=== PATIENT | female | born 1965 | race Hispanic/Latino ===

== ENCOUNTER 2018-02-16 08:27 | Outpatient (CLI) | payer BC | END 2018-02-16 08:28 | disposition home or self-care (01) | LOC: BICMAMMO 08:27 | PROVIDERS: ATTEND Internal Medicine Medical Oncology | DX: Z08 Encounter for follow-up examination after completed treatment for malignant neoplasm (principal); Z85.3 Personal history of malignant neoplasm of breast | CPT/HCPCS: 77066; G0279 ==

== ENCOUNTER 2019-02-17 08:06 | Outpatient (CLI) | payer BC ==
--- NOTE | 2019-02-17 08:43 | MMO ---
Bilateral MAMMO Bilat Diag [facility]. CLINICAL HISTORY: Patient is 53 years old and is seen for diagnostic exam. The patient has no family history of breast cancer. The patient has a history of Excisional biopsy procedure revealed invasive ductal left breast carcinoma in January, and malignant (generic) in the left breast in 2016. The patient has a history of left Lumpectomy in January, - malignant. VIEWS: The views performed were: bilateral craniocaudal with tomosynthesis; bilateral mediolateral oblique with tomosynthesis; and bilateral mediolateral with tomosynthesis. FILMS COMPARED: The present examination has been compared to prior imaging studies performed at [facility] on 02/20/2016, 03/20/2016, 02/12/2017 and 02/16/2018. This study has been interpreted with the assistance of computer-aided detection. MAMMOGRAM FINDINGS: There are scattered fibroglandular densities. There are no suspicious masses, suspicious calcifications, or new areas of architectural distortion. IMPRESSION: THERE IS NO MAMMOGRAPHIC EVIDENCE OF MALIGNANCY. A ROUTINE FOLLOW-UP MAMMOGRAM IN 1 YEAR IS RECOMMENDED. THE RESULTS OF THIS EXAM WERE SENT TO THE PATIENT. ACR BI-RADS Category 1 - Negative MAMMOGRAPHY NOTE: 1. A negative mammogram report should not delay a biopsy if a dominant of clinically suspicious mass is present. 2. Approximately 10% to 15% of breast cancers are not detected by mammography. 3. Adenosis and dense breasts may obscure an underlying neoplasm. Reported by: Marc ARIAS Electonically Signed: [id number]
== END 2019-02-17 08:07 | disposition home or self-care (01) ==
LOC: BICMAMMO 08:06
PROVIDERS: ATTEND Nurse Practitioner Family
DX: C50.919 Malignant neoplasm of unspecified site of unspecified female breast (principal); R92.8 Other abnormal and inconclusive findings on diagnostic imaging of breast
CPT/HCPCS: 77066; G0279

== ENCOUNTER 2019-04-15 08:38 | Outpatient (CLI) | payer BC ==
--- NOTE | 2019-04-15 09:29 | RAD ---
XR Shoulder Lt 3 View STANDARD History: Pain Comparison: None. Findings: No acute fracture or malalignment. Moderate degenerative disease acromioclavicular joint. V isualized ribs are intact. Impression: No acute osseous abnormality.
--- NOTE | 2019-04-15 09:29 | RAD ---
EXAM: XR Humerus Lt 2 View STANDARD PROVIDED CLINICAL HISTORY: Pain FINDINGS: There is no evidence for fracture or other acute osseous abnormality. Alignment appears anatomic. Maria Antonia nt spaces appear preserved. IMPRESSION: No evidence for an acute osseous abnormality. If there is persistent clinical concern, conservative m anagement and follow-up imaging advised.
--- NOTE | 2019-04-15 10:08 | BD ---
DEXA BONE MINERAL DENSITY STUDY: HISTORY: Osteoporosis screening. COMPARISON: None. FINDINGS: Lumbar Spine: BMD (g/cm2) L1 0.887 T-Score: -0.9 0.0 L2 0.990 T-Score: -0.3 0.7 L3 0.999 T-Score: -0.8 0.3 L4 1.036 T-Score: -0.2 0.9 L1-L4 0.982 T-Score: -0.6 0.4 Femoral Neck: 0.861 T-Score: 0.1 0.9 Total Femur: 0.982 T-Score: 0.3 0.9 WHO classification normal. Impression: Normal bone mineral density. POS: [facility]
== END 2019-04-15 08:39 | disposition home or self-care (01) ==
LOC: BICMAMMO 08:38
PROVIDERS: ATTEND Internal Medicine Medical Oncology
DX: Z13.820 Encounter for screening for osteoporosis (principal); M25.512 Pain in left shoulder; M79.622 Pain in left upper arm; C50.419 Malignant neoplasm of upper-outer quadrant of unspecified female breast; Z78.0 Asymptomatic menopausal state
CPT/HCPCS: 77080

== ENCOUNTER 2019-09-16 07:40 | Outpatient (CLI) | payer BC, OTHER ==
[2019-09-16 11:27] LABS: #Basophils 0.1 thou/uL (0.0-0.2); #Lymphocytes 2.5 thou/uL (1.20-3.40); #Monocytes 0.3 thou/uL (0.11-0.59); %Basophils 1.6 % (0.0-1.0); %Eosinophils 0.8 % (0.0-10.0); %Lymphocytes 41.3 % (21.0-51.0); %Monocytes 5.4 % (0.0-10.0); %Neutrophils 50.9 % (42.0-75.0); Hemoglobin 14.3 g/dL (12.0-16.0); Mean Corpuscular HGB CONC 33.9 g/dL (32.0-36.0); Mean Corpuscular Hemoglobin 30.8 pg (27.0-31.0); Mean Corpuscular Volume 90.8 fL (78.0-98.0); Mean Platelet Volume 6.4 fL (7.4-10.4); Platelet Count 279 thou/uL (130-400); RBC Distribution Width 11.3 % (11.5-14.5); Red Blood Cell (RBC) Count 4.64 mill/uL (4.20-5.40); White Blood Cell (WBC) Count 5.9 thou/uL (4.8-10.8)
[2019-09-16 11:56] LABS: Anion Gap 10 mmol/L (10-20); BUN (Urea Nitrogen) 15 mg/dL (9.8-20.1); Calc. Creatinine Clearance 0 mL/min (70-130); Calcium 9.2 mg/dL (7.8-10.44); Carbon Dioxide 28 mmol/L (22-29); Chloride 105 mmol/L (98-107); Estimated GFR-MDRD 75; Glucose 99 mg/dL (70-105); Potassium 3.9 mmol/L (3.5-5.1); Sodium 139 mmol/L (136-145)
[2019-09-16 18:09] LABS: SARS-CoV-2 MS2 Positive; SARS-CoV-2 N Gene Negative; SARS-CoV-2 S Gene Negative; SARS-CoV-2 orf1ab Negative
== END 2019-09-16 07:41 | disposition home or self-care (01) ==
LOC: LABBT 07:40
PROVIDERS: ATTEND Surgery
DX: Z01.812 Encounter for preprocedural laboratory examination (principal); Z11.59 Encounter for screening for other viral diseases; K42.9 Umbilical hernia without obstruction or gangrene
CPT/HCPCS: 80048; 85025; 87635; U0003

== ENCOUNTER 2019-09-20 05:57 | Day surgery (SDC) | payer BC ==
[2019-09-16 10:45] VITALS: BMI 28.3
[2019-09-20] MEDS ORDERED: Fentanyl 100 MCG/2 ML VIAL ONE (06:37)
[2019-09-20] MEDS ORDERED: Lidocaine 2% w/Epinephrine 1:200K 20 ML VIAL ONE (07:02)
[2019-09-20] MEDS ORDERED: Bupivacaine PF 0.5% 30 ML VIAL ONE (07:02)
--- NOTE | 2019-09-20 08:54 | OP ---
DATE OF PROCEDURE: 09/20/2019 PREOPERATIVE DIAGNOSIS: Umbilical hernia. POSTOPERATIVE DIAGNOSIS: Umbilical hernia. PROCEDURE PERFORMED: Umbilical hernia repair with mesh. ANESTHESIA: General. ESTIMATED BLOOD LOSS: Minimal. COMPLICATIONS: None. SPECIMENS: None. FINDINGS: Umbilical hernia. DESCRIPTION OF PROCEDURE: The patient was taken to the operating room and laid supine on the operating room table. After general anesthetic was obtained, the abdomen was prepped and draped in a sterile fashion. A curved incision was made below the umbilicus. Cautery was used to dissect down to and score the fascia. The abdominal cavity was entered bluntly using a Rosalind. Umbilical stalk was amputated exposing the umbilical defect. The edges of the defect were dissected and free. The preperitoneal space was bluntly dissected through the umbilical defect. A small Ventralex ST mesh was brought into the sterile field, placed into the umbilical defect. Its tails were laid out lateral. The tails were sewn via U-stitch of permanent braided suture to the edges of the fascia. The tails were then cut at the level of the fascia. Thus, the fascia was closed loosely over the mesh. The wound was irrigated. Local anesthetic was applied. The umbilical stalk was tacked back down using 3-0 Vicryl. The skin was closed using running 4-0 Monocryl and Dermabond. The patient was sent to Recovery in stable condition. All instrument counts, needle counts, lap counts were correct. Job ID: [id number]
[2019-09-20] MEDS ORDERED: Ondansetron PF 4 MG/2 ML Vial ONE (09:48)
[2019-09-20] MEDS ORDERED: Dexamethasone 20 MG/5 ML VIAL ONE (09:48)
[2019-09-20] MEDS ORDERED: Lidocaine 1% PF 5 ML VIAL ONE (09:48)
[2019-09-20] MEDS ORDERED: PROPOFOL 200 MG/20 ML VIAL ONE (09:48)
[2019-09-20] MEDS ORDERED: PHENYLEPHRINE-NS 100 MCG/ML 10 ML SYRINGE ONE (09:48)
[2019-09-20] MEDS ORDERED: Ketorolac Tromethamine 30 MG/ML VIAL ONE (09:48)
== END 2019-09-20 09:40 | disposition home or self-care (01) ==
LOC: SDC 05:57
PROVIDERS: ATTEND Surgery
PROC: 0WUF0JZ Supplement Abdominal Wall with Synthetic Substitute, Open Approach (ICD-10-PCS; principal; 2019-09-20)
DX: K42.9 Umbilical hernia without obstruction or gangrene (principal); Z85.3 Personal history of malignant neoplasm of breast; Z79.810 Long term (current) use of selective estrogen receptor modulators (SERMs); Z79.899 Other long term (current) drug therapy
CPT/HCPCS: J0690; J1100; J1885; J2001; J2405; J2704; J3010; S0020

== ENCOUNTER 2020-03-13 09:13 | Outpatient (CLI) | payer BC ==
--- NOTE | 2020-03-13 09:54 | MMO ---
Bilateral MAMMO Bilat Diag [facility]. CLINICAL HISTORY: Patient is 54 years old and is seen for diagnostic exam. The patient has no family history of breast cancer. The patient has a history of Excisional biopsy procedure revealed invasive ductal left breast carcinoma in January, and malignant (generic) in the left breast in 2016. The patient has a history of left Lumpectomy in January, - malignant. VIEWS: The views performed were: bilateral craniocaudal with tomosynthesis; bilateral mediolateral oblique with tomosynthesis; and bilateral mediolateral with tomosynthesis. FILMS COMPARED: The present examination has been compared to prior imaging studies performed at [facility] on 03/20/2016, 02/12/2017, 02/16/2018 and 02/17/2019. This study has been interpreted with the assistance of computer-aided detection. MAMMOGRAM FINDINGS: There are scattered fibroglandular densities. Benign calcifications are noted bilaterally. Nodularity is stable. There are stable left post-operative changes. There are no suspicious masses, suspicious calcifications, or new areas of architectural distortion. IMPRESSION: THERE IS NO MAMMOGRAPHIC EVIDENCE OF MALIGNANCY. A ROUTINE FOLLOW-UP MAMMOGRAM IN 1 YEAR IS RECOMMENDED. THE RESULTS OF THIS EXAM WERE SENT TO THE PATIENT. ACR BI-RADS Category 2 - Benign finding MAMMOGRAPHY NOTE: 1. A negative mammogram report should not delay a biopsy if a dominant of clinically suspicious mass is present. 2. Approximately 10% to 15% of breast cancers are not detected by mammography. 3. Adenosis and dense breasts may obscure an underlying neoplasm. Reported by: PATRICIA ARCE MD Electonically Signed: [id number]
== END 2020-03-13 09:14 | disposition home or self-care (01) ==
LOC: BICMAMMO 09:13
PROVIDERS: ATTEND Internal Medicine Medical Oncology
DX: C50.419 Malignant neoplasm of upper-outer quadrant of unspecified female breast (principal)
CPT/HCPCS: 77066; G0279

== ENCOUNTER 2020-05-11 09:49 | Outpatient (CLI) | payer BC | END 2020-05-11 09:50 | disposition home or self-care (01) | LOC: BICMAMMO 09:49 | PROVIDERS: ATTEND Internal Medicine Medical Oncology | DX: Z13.820 Encounter for screening for osteoporosis (principal); T38.6X5A Adverse effect of antigonadotrophins, antiestrogens, antiandrogens, not elsewhere classified, initial encounter; Z78.0 Asymptomatic menopausal state | CPT/HCPCS: 77080 ==

== ENCOUNTER 2021-03-14 08:27 | Outpatient (CLI) | payer BC | END 2021-03-14 08:28 | disposition home or self-care (01) | LOC: BICMAMMO 08:27 | PROVIDERS: ATTEND Internal Medicine Medical Oncology | DX: Z08 Encounter for follow-up examination after completed treatment for malignant neoplasm (principal); Z85.3 Personal history of malignant neoplasm of breast | CPT/HCPCS: 77066; G0279 ==

== ENCOUNTER 2021-09-26 10:41 | Outpatient (CLI) | payer BC | END 2021-09-26 10:42 | disposition home or self-care (01) | LOC: MRI 10:41 | PROVIDERS: ATTEND Internal Medicine | DX: K59.4 Anal spasm (principal); K62.89 Other specified diseases of anus and rectum; D25.9 Leiomyoma of uterus, unspecified; Z85.3 Personal history of malignant neoplasm of breast | CPT/HCPCS: 72197 ==

== ENCOUNTER 2022-03-27 13:40 | Outpatient (CLI) | payer BC | END 2022-03-27 13:41 | disposition home or self-care (01) | LOC: BICMAMMO 13:40 | PROVIDERS: ATTEND Internal Medicine Medical Oncology | DX: Z12.31 Encounter for screening mammogram for malignant neoplasm of breast (principal); Z85.3 Personal history of malignant neoplasm of breast; Z98.890 Other specified postprocedural states | CPT/HCPCS: 77063; 77067 ==

== ENCOUNTER 2024-04-28 11:41 | Outpatient (CLI) | payer BC | END 2024-04-28 11:42 | disposition home or self-care (01) | LOC: BICMAMMO 11:41 | PROVIDERS: ATTEND Specialist | DX: Z12.31 Encounter for screening mammogram for malignant neoplasm of breast (principal); Z85.3 Personal history of malignant neoplasm of breast; Z98.890 Other specified postprocedural states | CPT/HCPCS: 77063; 77067 ==